=== PATIENT | male | born 1995 | race Caucasian/White ===

== ENCOUNTER 2022-05-17 09:54 | Observation (INO) ==
[2022-05-17] MEDS ORDERED: SODIUM CHLORIDE 0.9% 250 ML IV PRN (10:15)
[2022-05-17 10:18] LABS: Basophils # (auto) 0.07 K/uL (0-0.2); Basophils % (auto) 0.4 %; Eosinophils # (auto) 0.33 K/uL (0-0.50); Eosinophils % (auto) 1.8 %; Hematocrit (blood only) 46.1 % (40.1-51.0); Hemoglobin 16.3 g/dl (14.0-18.0); Immature Granulocytes # (auto) 0.08 K/uL (0.00-0.02); Immature Granulocytes % (auto) 0.4 %; Lymphocytes # (auto) 2.88 K/uL (1.2-3.4); Lymphocytes % (auto) 15.9 %; Mean Corpuscular Hemoglobin 32.8 pg (25.0-34.0); Mean Corpuscular Hgb Conc 35.4 g/dL (32.0-36.0); Mean Corpuscular Volume 92.8 fL (80.0-100.0); Neutrophils # (auto) 13.81 K/uL (1.4-6.5); Neutrophils % (auto) 76.5 %; Platelet Count 312 K/uL (130-400); RDW Coefficient of Variation 13.3 % (11.5-14.5); RDW Standard Deviation 45.4 fL (36.4-46.3); Red Blood Count 4.97 M/uL (4.63-6.08); White Blood Count 18.07 K/ul (4.8-10.8)
[2022-05-17 10:29] LABS: Partial Thromboplastin Ratio 0.8; Partial Thromboplastin Time 23.3 Seconds (21.0-31.0); Prothrombin Time 10.9 Seconds (9.0-12.0)
--- NOTE | 2022-05-17 10:32 | Emergency Department Note ---
Impression & Plan Epistaxis, Hematemesis, Atrial tachycardia ED Provider Note NAME: LEWIS SOTO AGE: 26 SEX: M : 1995 ARRIVES VIA: Walk-In INFORMANT: Patient ED PROVIDER(S): Sen Rivera DO CHIEF COMPLAINT: Epistaxis and vomiting blood HPI: Patient had nasal surgery over a month ago by Dr. May and had the scab removed from his left nare this past week. He has been having intermittent bleeding since then. He was cauterized yesterday by Dr. May in the office and was packed. Bleeding started today and was significantly worse and is scheduled for the OR. ROS: See above HPI for pertinent positives & negatives. A total of 10 systems reviewed and were otherwise negative. PAST MEDICAL HISTORY:See Below PAST SURGICAL HISTORY:See Below FAMILY HISTORY:See Below SOCIAL HISTORY:See Below HOME MEDICATIONS:See Below ALLERGIES:See Below VITALS:See Below PHYSICAL EXAMINATION: GENERAL: Sitting up in bed, blood coming out of the left nare and right nare and vomiting up blood EYE EXAM: normal conjunctiva. PERRL and EOM's grossly intact. OROPHARYNX: Large amount of blood in the oropharynx NOSE: Right nare was initially packed with a 7.5 Rhino. Packing was then removed from the left nare as he continued to have bleeding and attempted a 7 and half Rhino but was unsuccessful and downsized eventually to 4.5 Rhino which was inflated. Bleeding stopped following this. LUNGS: Clear to auscultation. Normal chest wall mechanics HEART: no murmurs, S1 normal and S2 normal ABDOMEN: abdomen soft, non-tender, normo-active bowel sounds, no masses, no rebound or guarding. UPPER EXTREMITIES: upper extremities are grossly normal. LOWER EXTREMITIES: No pitting edema. NEURO EXAM: Normal sensorium, cranial nerves II-XII [grossly] intact, normal speech, no [gross] weakness of arms, no [gross] weakness of legs. [No drift. Finger to nose intact. Gross sensation intact.] MEDICAL DECISION MAKING: Patient is a 26-year-old male who was sent in for the OR Dr. Carter was aware of. I was called to bedside as patient was having excessive epistaxis which was coming out of the right nare, he was vomiting blood, blood was coming out of the left nare packing. Right nare was packed with a 7.5 Rhino emergently and was inflated to 8 cc. Bleeding continued. Packing of the left nare was removed and attempted to insert a 7.5 Rhino but had resistance. Downsized to 5.5 and again this would not go completely and consequently placed a 4.5 Rhino. This was inflated with 5 cc. Following this bleeding did stop. He did have at least 300 to 500 cc of blood in the basin as well as the toilet, the floor and over himself. Once the bleeding had stopped to contact Dr. QURESHI and he was made aware. He is currently scheduled for the OR at 12:00. Labs showed no significant anemia. Mild leukocytosis 18,000 which I favor secondary to the vomiting. INR was unremarkable. BMP was unremarkable. Patient was typed and crossed for 2 units due to the excess amount of bleeding that he had in the ER. He had no other complaints at this time. Dad was updated bedside. He was given IV fluids as well as Zofran and morphine while in the ER. Hematemesis was likely secondary to the posterior epistaxis draining down the back of his throat. Triage Nursing notes reviewed. Limited review of prior medical records performed Vital Signs: reviewed and remarkable for tachy and HTN Differential diagnosis: Anterior epistaxis, coagulopathy, traumatic injury, fracture, septal hematoma, posterior epistaxis, infections, as well as other pathologies. ER treatment provided: See below Diagnostics interpreted by me: ECG: none Laboratory studies: As stated above and show below. Imaging studies: none Consultation(s): Discussed with Dr. May and Pt is going to the OR Procedures: Procedure: #1 Anterior Nasal Packing Indication: Epistaxis Verbal consent obtained. Risks and benefits were explained with the usual customary discussion. A time out was taken. The right naris was prepped. A 7.5-cm nasal balloon was placed in a standard fashion. The patient tolerated this well. Hemostasis was not achieved. The balloon was inflated to 8 cc. no complications. Procedure: #2 Anterior Nasal Packing Indication: Epistaxis Verbal consent obtained. Risks and benefits were explained with the usual customary discussion. A time out was taken. The left naris was prepped with Afrin and lidocaine. A 4.5-cm nasal balloon was placed in a standard fashion as the 7.5 and 5.5 would not pass. The patient tolerated this well. Hemostasis was achieved. No complications. 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 MAY History of tooth extraction wisdom teeth Family History Grandfather (Maternal) Heart disease Grandfather (Paternal) Cancer Testicle cancer Mother Asthma Other Seasonal allergies Denies family history of Hypertension Stroke Social History Smoking Status: Never smoker Second Hand Exposure: No; Hx Alcohol Use: Yes Alcohol type: beer Alcohol Intake Frequency Comment: 1-2 beers per week Hx Substance Use: No Preferred Language: Senegalese Communication Ability: Effective Engineering Technologist Required: No Beliefs That Will Affect Care: None marital status: Single Current Living Situation: Parent current occupational status: student current occupation: [employer] STUDENT/WORKS [employer] Feels Safe at Home: Yes Assistive Devices: Glasses Allergies Allergies Allergy/AdvReac Type Severity Reaction Status Date / Time amoxicillin Allergy Severe Anaphylaxis Verified 05/17/22 10:34 Penicillins Allergy Unknown Anaphylaxis Verified 05/17/22 10:34 PEANUTS Allergy Unknown Anaphylaxis Uncoded 05/17/22 10:34 Home Meds Home Medications Medication Instructions Recorded Confirmed cetirizine 10 mg tablet (Zyrtec) 10 mg PO HS PRN Allergy Symptoms 06/16/21 05/17/22 lithium carbonate 450 mg 450 mg PO HS 06/16/21 05/17/22 tablet,extended release acetaminophen 650 mg 1,300 mg PO Q8H PRN Pain 04/06/22 05/17/22 tablet,extended release (Tylenol Arthritis Pain) doxycycline hyclate 100 mg tablet 100 mg PO DAILY 05/17/22 05/17/22 epinephrine 0.3 mg/0.3 mL 0.3 mg IM DIRECTED PRN 05/17/22 05/17/22 injection, auto-injector (EpiPen bronchodilation 2-Forrest) Results & Data (ED) Vital Signs Vital Signs - 24 hr 05/17/22 09:59 05/17/22 11:12 05/17/22 11:22 Temperature 36.7 C Temperature Source Oral Pulse Rate 132 H 108 H Pulse Rate [Left Finger] 115 H Pulse Rhythm [Left Finger] Regular Pulse Strength [Left Finger] Normal Respiratory Rate 20 18 18 Respiratory Effort / Characteristics Non-Labored Non-Labored Spontaneous Respiratory Depth Normal Normal Respiratory Pattern Regular Blood Pressure 152/94 H 134/72 Blood Pressure [Right Arm] 171/109 H Blood Pressure Mean 113 Blood Pressure Mean [Right Arm] 129 Blood Pressure Position [Right Arm] Semi-fowlers Pulse Oximetry 100 99 97 Oxygen Delivery Method Room Air Room Air Room Air Oxygen Flow Rate Sepsis Recent Fever Within 48 Hours No Sepsis New/Unexplained Change in Mental Status N/A Sepsis Action Taken by Nursing No Action Required 05/17/22 13:18 05/17/22 13:25 Temperature 36.5 C Temperature Source Temporal Artery Scan Pulse Rate Pulse Rate [Left Finger] 130 H 109 H Pulse Rhythm [Left Finger] Regular Regular Pulse Strength [Left Finger] Normal Normal Respiratory Rate 18 18 Respiratory Effort / Characteristics Non-Labored Spontaneous Non-Labored Spontaneous Respiratory Depth Normal Normal Respiratory Pattern Regular Regular Blood Pressure Blood Pressure [Right Arm] 130/71 130/82 Blood Pressure Mean Blood Pressure Mean [Right Arm] 90 98 Blood Pressure Position [Right Arm] Semi-fowlers Semi-fowlers Pulse Oximetry 99 100 Oxygen Delivery Method Oxymask Oxymask Oxygen Flow Rate 5 5 Sepsis Recent Fever Within 48 Hours Sepsis New/Unexplained Change in Mental Status Sepsis Action Taken by Nursing Laboratory Data Result diagrams: 05/17/22 10:04 05/17/22 10:04 Lab Results 05/17/22 05/17/22 05/17/22 Range/Units 10:04 10:04 10:04 WBC 18.07 H (4.8-10.8) K/ul RBC 4.97 (4.63-6.08) M/uL Hgb 16.3 (14.0-18.0) g/dl Hct 46.1 (40.1-51.0) % MCV 92.8 (80.0-100.0) fL MCH 32.8 (25.0-34.0) pg MCHC 35.4 (32.0-36.0) g/dL RDW Std Deviation 45.4 (36.4-46.3) fL RDW Coeff of Eric 13.3 (11.5-14.5) % Plt Count 312 (130-400) K/uL MPV 12.0 (9.4-12.4) fL Immature Gran % (Auto) 0.4 % Neut % (Auto) 76.5 % Lymph % (Auto) 15.9 % [place]oula % (Auto) 5.0 % Eos % (Auto) 1.8 % Baso % (Auto) 0.4 % Neut # (Auto) 13.81 H (1.4-6.5) K/uL Lymph # (Auto) 2.88 (1.2-3.4) K/uL [place] # (Auto) 0.90 H (0.24-0.82) K/uL Eos # (Auto) 0.33 (0-0.50) K/uL Baso # (Auto) 0.07 (0-0.2) K/uL Immature Gran # (Auto) 0.08 H (0.00-0.02) K/uL PT 10.9 (9.0-12.0) Seconds INR 1.0 (0.9-1.1) APTT 23.3 (21.0-31.0) Seconds PTT Ratio 0.8 Sodium (136-145) mmol/L Potassium (3.5-5.1) mmol/L Chloride (98-107) mmol/L Carbon Dioxide (21-32) mmol/L Anion Gap (3-11) BUN (6-23) mg/dl Creatinine (0.6-1.4) mg/dl Est Cr Clr Drug Dosing ml/min Est GFR ( Amer) ml/min Est GFR (Non-Af Amer) ml/min BUN/Creatinine Ratio (10-20) Glucose (70-99(Fasting)) mg/dl Calcium (8.5-10.1) mg/dl Total Bilirubin (0.2-1.0) mg/dl AST (13-39) U/L ALT (7-52) U/L Alkaline Phosphatase (34-104) U/L Total Protein (6.0-8.3) gm/dl Albumin (3.4-5.0) gm/dl Globulin (2.5-4.0) gm/dl Albumin/Globulin Ratio (0.9-2) Blood Type O Positive Antibody Screen NEGATIVE Crossmatch See Detail 05/17/22 Range/Units 10:04 WBC (4.8-10.8) K/ul RBC (4.63-6.08) M/uL Hgb (14.0-18.0) g/dl Hct (40.1-51.0) % MCV (80.0-100.0) fL MCH (25.0-34.0) pg MCHC (32.0-36.0) g/dL RDW Std Deviation (36.4-46.3) fL RDW Coeff of Eric (11.5-14.5) % Plt Count (130-400) K/uL MPV (9.4-12.4) fL Immature Gran % (Auto) % Neut % (Auto) % Lymph % (Auto) % [place]oula % (Auto) % Eos % (Auto) % Baso % (Auto) % Neut # (Auto) (1.4-6.5) K/uL Lymph # (Auto) (1.2-3.4) K/uL [place] # (Auto) (0.24-0.82) K/uL Eos # (Auto) (0-0.50) K/uL Baso # (Auto) (0-0.2) K/uL Immature Gran # (Auto) (0.00-0.02) K/uL PT (9.0-12.0) Seconds INR (0.9-1.1) APTT (21.0-31.0) Seconds PTT Ratio Sodium 138 (136-145) mmol/L Potassium 4.4 (3.5-5.1) mmol/L Chloride 105 (98-107) mmol/L Carbon Dioxide 24 (21-32) mmol/L Anion Gap 9 (3-11) BUN 17 (6-23) mg/dl Creatinine 1.06 (0.6-1.4) mg/dl Est Cr Clr Drug Dosing 86.5 ml/min Est GFR ( Amer) 113.3 ml/min Est GFR (Non-Af Amer) 97.8 ml/min BUN/Creatinine Ratio 16.0 (10-20) Glucose 121 H (70-99(Fasting)) mg/dl Calcium 10.0 (8.5-10.1) mg/dl Total Bilirubin 0.5 (0.2-1.0) mg/dl AST 14 (13-39) U/L ALT 10 (7-52) U/L Alkaline Phosphatase 62 (34-104) U/L Total Protein 7.6 (6.0-8.3) gm/dl Albumin 4.9 (3.4-5.0) gm/dl Globulin 2.7 (2.5-4.0) gm/dl Albumin/Globulin Ratio 1.8 (0.9-2) Blood Type Antibody Screen Crossmatch Administered Medications Discontinued Medications Gelatin (Gelatin Sponge Sz 100) Confirm Administered Dose 1 each .ROUTE .STK-MED ONE Stop: 05/17/22 11:50 Last Admin: 05/17/22 12:48 Dose: 1 each Documented By: CRISTINA Tranexamic Acid 640 mg/ Sodium (Chloride) 56.4 mls @ 225.6 mls/hr IV PREOP ONE Stop: 05/17/22 10:39 Last Admin: 05/17/22 12:10 Dose: 225.6 mls/hr Documented By: PAMELA Lidocaine/Epinephrine (Lidocaine 2%/Epinephrine 1:100,000 20ml) Confirm Administered Dose 20 ml INFIL .STK-MED ONE Stop: 05/17/22 11:50 Last Admin: 05/17/22 12:51 Dose: 20 ml Documented By: CRISTINA Miscellaneous ( Floseal Hemostatic Matrix 10ml) 10 ml TOP ONCE ONE Stop: 05/17/22 12:11 Last Admin: 05/17/22 12:52 Dose: 7 ml Documented By: CRISTINA Morphine Sulfate (Morphine Sulfate 4 Mg/Ml 1 Ml Carp\Vial) 4 mg IV NOW STA Stop: 05/17/22 10:39 Last Admin: 05/17/22 10:54 Dose: 4 mg Documented By: SHUN Ondansetron HCl (Ondansetron Inj 2 Mg/Ml 2 Ml Vial) 4 mg IV NOW STA Stop: 05/17/22 10:39 Last Admin: 05/17/22 10:54 Dose: 4 mg Documented By: SHUN Discharge Plan Visit Data Chief Complaint: Nose Bleed (Minor) Stated Complaint: NOSE BLEED,S/P SURG,TO SEE DR MAY ED Provider: Sen Rivera Discharge Problem: Epistaxis, Hematemesis, Atrial tachycardia Discharge Instructions Interventions: ED Discharge Assessment Last Done: 05/17/22 11:12 Forms Stand Alone Forms: My [facility] Prescriptions Prescriptions: No Action cetirizine [Zyrtec] 10 mg tablet 10 mg PO HS PRN (Reason: Allergy Symptoms) lithium carbonate 450 mg tablet extended release 450 mg PO HS acetaminophen [Tylenol Arthritis Pain] 650 mg Tablet Extended Release 1,300 mg PO Q8H PRN (Reason: Pain) doxycycline hyclate 100 mg tablet 100 mg PO DAILY epinephrine [EpiPen 2-Forrest] 0.3 mg/0.3 mL auto-injector 0.3 mg IM DIRECTED PRN (Reason: bronchodilation) Rx Instructions: 0.3 mg IM as needed for anaphylaxis, may repeat after 10 minutes if needed. Referrals Referrals: Onelia Boudreaux MD [Primary Care Provider] -
[2022-05-17] MEDS ORDERED: MoRPHine SULFATE 4 MG/ML 1 ML CARP\\VIAL IV STA (10:38)
[2022-05-17] MEDS ORDERED: SODIUM CHLORIDE 0.9% IV ONE (10:38)
[2022-05-17] MEDS ORDERED: ONDANSETRON INJ 2 MG/ML 2 ML VIAL IV STA (10:38)
[2022-05-17] MEDS ORDERED: TRANEXAMIC ACID IV ONE (10:38)
[2022-05-17 10:40] LABS: Albumin Globulin Ratio 1.8 (0.9-2); Albumin Level 4.9 gm/dl (3.4-5.0); Bilirubin,Total 0.5 mg/dl (0.2-1.0); Creatinine Clr Calc Pharmacy 86.5 ml/min; Est GFR (African American) 113.3 ml/min; Est GFR (Non-African American) 97.8 ml/min; Globulin 2.7 gm/dl (2.5-4.0); Potassium 4.4 mmol/L (3.5-5.1); Total Protein 7.6 gm/dl (6.0-8.3)
[2022-05-17] MEDS ORDERED: GELATIN SPONGE SZ 100 ONE (11:49)
[2022-05-17] MEDS ORDERED: LIDOCAINE 2%/EPINEPHRINE 1:100,000 20ML INFIL ONE (11:49)
--- NOTE | 2022-05-17 11:52 | Anesthesiology Consultation ---
Date of Service May 17, 2022 Assessment & Plan (1) Encounter for pre-operative examination: Chart Review Chart Review: Acceptable Risk for Surgery and Patient NOT seen in Pre Admission Testing Consults Requested none History Surgery Operation Date: 05/17/22 13:30 Proposed Procedures p Endoscopic Cauterization - Kadi Marley MD Height/Weight Height: 5 ft 3 in Weight: 64 kg Allergies Allergy/AdvReac Type Severity Reaction Status Date / Time amoxicillin Allergy Severe Anaphylaxis Verified 05/17/22 10:34 Penicillins Allergy Unknown Anaphylaxis Verified 05/17/22 10:34 PEANUTS Allergy Unknown Anaphylaxis Uncoded 05/17/22 10:34 Medications Home Medications Medication Instructions Recorded Confirmed Last Taken cetirizine 10 mg tablet (Zyrtec) 10 mg PO HS PRN Allergy Symptoms 06/16/21 05/17/22 05/16/22 lithium carbonate 450 mg 450 mg PO HS 06/16/21 05/17/22 05/16/22 tablet,extended release acetaminophen 650 mg 1,300 mg PO Q8H PRN Pain 04/06/22 05/17/22 Unknown tablet,extended release (Tylenol Arthritis Pain) doxycycline hyclate 100 mg tablet 100 mg PO DAILY 05/17/22 05/17/22 05/17/22 0800 epinephrine 0.3 mg/0.3 mL 0.3 mg IM DIRECTED PRN 05/17/22 05/17/22 Unknown injection, auto-injector (EpiPen bronchodilation 2-Forrets) NPO Date Last Intake of Fluids: 05/17/22 Time Last Intake of Fluids: 09:00 Date Last Intake of Solids: 05/16/22 Time Last Intake of Solids: 15:00 Past Medical History Medical History Allergy to nuts ANAPHYLAXIS TO ALL NUTS Anxiety GERD (gastroesophageal reflux disease) Past Family History Family History Grandfather (Maternal) Heart disease Grandfather (Paternal) Cancer Testicle cancer Mother Asthma Other Seasonal allergies Denies family history of Hypertension Stroke Past Surgical History Surgical History History of nasal surgery ELECTRIC CAUTERY FOR EPISTAXIS-05/01/22-DR. MARLEY History of tooth extraction wisdom teeth Social History Smoking Status: Never smoker Hx Alcohol Use: Yes Alcohol type: beer alcohol intake frequency: other Hx Substance Use: No Physical Exam Vital Signs Last Vital Signs Temp 36.7 C 05/17/22 11: Pulse 115 H 05/17/22 11:22 Resp 18 05/17/22 11:22 BP 171/109 H 05/17/22 11:22 Pulse Ox 97 05/17/22 11: O2 Del Method 05/17/22 11:22 Testing Laboratory Results 05/17/22 10:04 05/17/22 10:04 PT 10.9 Seconds (9.0-12.0) 05/17/22 10:04 INR 1.0 (0.9-1.1) 05/17/22 10:04 APTT 23.3 Seconds (21.0-31.0) 05/17/22 10:04 Blood Type O Positive 05/17/22 10:04 Antibody Screen NEGATIVE 05/17/22 10:04
[2022-05-17] MEDS ORDERED: ATROPINE SULFATE 0.1 MG/ML 10ML SYR IV PRN (11:53)
[2022-05-17] MEDS ORDERED: HYDROmorphone INJ 1 MG/ML SYRINGE IV PRN (11:53)
[2022-05-17] MEDS ORDERED: ONDANSETRON INJ 2 MG/ML 2 ML VIAL IV PRN ×2 (11:53→13:34)
[2022-05-17] MEDS ORDERED: ePHEDrine sulfate 50 MG/ML AMP IV PRN (11:53)
[2022-05-17] MEDS ORDERED: fentaNYL citrate 100 MCG/2 ML VIAL IV PRN (11:53)
--- NOTE | 2022-05-17 11:55 | History & Physical Report ---
Date of Service May 17, 2022 Assessment & Plan (1) Acquired deviated nasal septum: Plan: s/p septoplasty, RFVR turbinates, now bleeding, for endoscopic cautery Plan for endoscopic cautery History of Present Illness Chief Complaint: Acute epistaxis Primary Care Provider: Onelia Boudreaux MD This 26-year-old gentleman underwent septoplasty and radiofrequency volume reduction the turbinates by me. He had episode of bleeding last week from the right nares, found to be from the right inferior turbinate. This resolved. He has some bleeding from the left nares yesterday, cauterized and packed in office by me yesterday. Again had bleeding this morning. Large amount of clots. Left nares. Allergies Allergy/AdvReac Type Severity Reaction Status Date / Time amoxicillin Allergy Severe Anaphylaxis Verified 05/17/22 10:34 Penicillins Allergy Unknown Anaphylaxis Verified 05/17/22 10:34 PEANUTS Allergy Unknown Anaphylaxis Uncoded 05/17/22 10:34 Home Medications Medication Instructions Recorded Confirmed Type cetirizine 10 mg tablet (Zyrtec) 10 mg PO HS PRN Allergy Symptoms 06/16/21 05/17/22 History lithium carbonate 450 mg 450 mg PO HS 06/16/21 05/17/22 History tablet,extended release acetaminophen 650 mg 1,300 mg PO Q8H PRN Pain 04/06/22 05/17/22 History tablet,extended release (Tylenol Arthritis Pain) doxycycline hyclate 100 mg tablet 100 mg PO DAILY 05/17/22 05/17/22 History epinephrine 0.3 mg/0.3 mL 0.3 mg IM DIRECTED PRN 05/17/22 05/17/22 History injection, auto-injector (EpiPen bronchodilation 2-Forrest) Past Med/Surg History Medical History Allergy to nuts 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 MARLYE History of tooth extraction wisdom teeth Family History Grandfather (Maternal) Heart disease Grandfather (Paternal) Cancer Testicle cancer Mother Asthma Other Seasonal allergies Denies family history of Hypertension Stroke Social History Smoking Status: Never smoker Second Hand Exposure: No; Hx Alcohol Use: Yes Alcohol type: beer Alcohol Intake Frequency Comment: 1-2 beers per week Hx Substance Use: No Preferred Language: [place] Communication Ability: Effective Brand Development Manager Required: No Beliefs That Will Affect Care: None marital status: Single Current Living Situation: Parent current occupational status: student current occupation: [employer] STUDENT/WORKS [employer] Feels Safe at Home: Yes Assistive Devices: Glasses Physical Exam Constitutional: WD/WN, vitals as above Eyes: PERRL, conjunctivae normal, anicteric sclerae ENMT: Nose: + epistaxis (Acute bleed left inferior turbinate. Required epistaxis in ER) Neck: trachea midline, no thyromegaly Respiratory: normal respiratory effort, lungs clear to auscultation Results & Data Results & Data ([facility]) Vital Signs (Past 12 Hours) Vital Signs Temp Pulse Pulse Resp BP BP Pulse Ox 05/17/22 11:22 36.7 C 115 H 18 171/109 H 97 05/17/22 11:12 108 H 18 134/72 99 05/17/22 09:59 132 H 20 152/94 H 100 O2 Del Method 05/17/22 11:22 Room Air 05/17/22 11:12 Room Air 05/17/22 09:59 Room Air PG Care Time/CCT Total # of Minutes Spent Total Time Spent with Patient: Total time spent is greater than 50% in coordination of care (as documented) at patient's floor/unit and/or counseling patient: Coding Level of Care Code None Diagnoses Acquired deviated nasal septum J34.2
[2022-05-17] MEDS ORDERED: ONDANSETRON INJ 2 MG/ML 2 ML VIAL ONE (12:07)
[2022-05-17] MEDS ORDERED: MIDAZOLAM HCL 1 MG/ML 2ML VIAL ONE ×2 (12:07→12:17)
[2022-05-17] MEDS ORDERED: LIDOCAINE 2% MPF LOCAL 5 ML VIAL INFIL ONE (12:07)
[2022-05-17] MEDS ORDERED: fentaNYL citrate 100 MCG/2 ML VIAL ONE (12:07)
[2022-05-17] MEDS ORDERED: PROPOFOL IV EMULSION 10 MG/ML 20 ML VIAL IV ONE (12:07)
[2022-05-17] MEDS ORDERED: ROCURONIUM BROMIDE 10 MG/ML 5 ML VIAL IV ONE (12:09)
[2022-05-17] MEDS ORDERED: FLOSEAL HEMOSTATIC MATRIX 10ML TOP ONE (12:10)
[2022-05-17] MEDS ORDERED: FAMOTIDINE/PF 20 MG/2 ML VIAL IV ONE (12:12)
[2022-05-17] MEDS ORDERED: KETAMINE 50 MG/5 ML SYRINGE ONE (12:17)
[2022-05-17] MEDS ORDERED: LABETALOL HCL IV 5 MG/ML 20ML IV ONE (13:19)
[2022-05-17] MEDS ORDERED: HYDROCODONE/ACETAMOPHEN 5/325MG TAB PO PRN (13:34)
[2022-05-17] MEDS ORDERED: ACETAMINOPHEN 325 MG TAB PO PRN (13:34)
--- NOTE | 2022-05-17 13:53 | Operative Report ---
PG Post Operative Report Pre & Post Diagnosis Operation Date: 05/17/22 13:30 Pre-Op Diagnosis: Acquired deviated nasal septum, status post septoplasty, epistaxis Post-Op Diagnosis: Acquired deviated nasal septum, status post septoplasty, epistaxis I identified the patient and participated in the time-out.: Yes Procedure Operation Date: 05/17/22 13:30 Actual Procedures p Endoscopic Cauterization - Kadi May MD Surgeon Kadi May MD Strainer Cleaner None Estimated Blood Loss 75 Findings Consistent with Post-Op Diagnosis Exposed bone left inferior turbinate Specimens None Anesthesia Type General Complications None Description of Procedure He was brought to the operating room, properly identified, prepped and draped in the usual sterile manner after general endotracheal anesthesia due to blood in the stomach. The stomach was later evacuated using a orogastric tube. The nose was decongested using cottonoids with topical 2% Xylocaine with 1- 100,000 strength epinephrine. The right nares was visualized. There was no bleeding site identified. Left nasal cavity was visualized with the endoscope. Bleeding site identified anterior and of the left inferior turbinate. There was some exposed bone which was removed to allow identification of the bleeding site at the anterior end of the left inferior turbinate which was cauterized using the suction cautery with good control. The nose was packed with larger piece of Gelfoam posteriorly and then 7 cc of Floseal especially over the bleeding site followed by a smaller piece of Gelfoam anteriorly to hold the Floseal in place. He tolerated procedure well was taken recovery area in satisfactory condition. I attest to the content of the Intraoperative Record and any orders documented therein. Any exceptions are noted below.
--- NOTE | 2022-05-17 14:53 | Anesthesiology Progress Note ---
Date of Service May 17, 2022 Anesthesia Post Procedure Vital Signs Vital Signs: Temp Pulse Pulse Resp BP BP Pulse Ox 05/17/22 14:20 102 H 16 119/89 95 05/17/22 14:05 100 H 17 112/91 95 05/17/22 13:55 36.6 C 102 H 17 133/86 95 05/17/22 13:45 102 H 18 125/85 95 05/17/22 13:35 102 H 18 127/93 95 05/17/22 13:25 109 H 18 130/82 100 05/17/22 13:18 36.5 C 130 H 18 130/71 99 05/17/22 11:22 36.7 C 115 H 18 171/109 H 97 05/17/22 11:12 108 H 18 134/72 99 05/17/22 09:59 132 H 20 152/94 H 100 O2 Del Method O2 Flow Rate 05/17/22 14:20 Room Air 05/17/22 14:05 Room Air 05/17/22 13:55 Room Air 05/17/22 13:45 Room Air 05/17/22 13:35 Room Air 05/17/22 13:25 Oxymask 5 05/17/22 13:18 Oxymask 5 05/17/22 11:22 Room Air 05/17/22 11:12 Room Air 05/17/22 09:59 Room Air Pain Intensity Nose: Pain Intensity: 4 Transfer of Care Handoff Completed per policy Notes Mental Status: alert / awake / arousable and participated in evaluation Patient Amnestic to Procedure: Yes Nausea / Vomiting: adequately controlled Pain: adequately controlled Airway Patency, RR, SpO2: stable & adequate BP & HR: stable & adequate Hydration State: stable & adequate Anesthetic Complications: no major complications apparent and Pt Satisfied with anesthetic care
[2022-05-17] MEDS: ACETAMINOPHEN 500 MG TAB PO PRN (18:13)
[2022-05-17] MEDS ORDERED: LITHIUM CARBONATE 450 MG TABCR PO SCH (21:00)
[2022-05-17] MEDS ORDERED: PROMETHAZINE HCL 25 MG in SODIUM CHLORIDE 0.9% 50 ML IV PRN (21:28)
[2022-05-17] MEDS ORDERED: traMADol HCL 50 MG TABLET PO PRN (21:56)
[2022-05-17] MEDS ORDERED: CALCIUM CARBONATE 500 MG CHEWABLE TAB PO PRN ×2 (21:57→22:33)
[2022-05-17] MEDS: ONDANSETRON INJ 2 MG/ML 2 ML VIAL IV PRN (22:01)
[2022-05-18] MEDS ORDERED: MELATONIN 3 MG TAB PO PRN (02:14)
[2022-05-18] MEDS: ONDANSETRON INJ 2 MG/ML 2 ML VIAL IV PRN (05:29)
[2022-05-18] MEDS: ACETAMINOPHEN 500 MG TAB PO PRN (05:31)
[2022-05-18] MEDS ORDERED: PROMETHAZINE HCL 25 MG TAB PO ONE (08:02)
--- NOTE | 2022-05-18 08:15 | Discharge Summary ---
Date of Service May 18, 2022 Admission HPI Per Admitting Provider This 26-year-old gentleman underwent septoplasty and radiofrequency volume reduction the turbinates by me. He had episode of bleeding last week from the right nares, found to be from the right inferior turbinate. This resolved. He has some bleeding from the left nares yesterday, cauterized and packed in office by me yesterday. Again had bleeding this morning. Large amount of clots. Left nares. Admission Exam (Per Admitting) Constitutional WD/WN, vitals as above Eyes PERRL, conjunctivae normal, anicteric sclerae ENMT Nose: + epistaxis (Acute bleed left inferior turbinate. Required epistaxis in ER) Neck trachea midline, no thyromegaly Respiratory normal respiratory effort, lungs clear to auscultation Discharge Data Procedures Performed Operation Date: 05/17/22 13:30 Actual Procedures p Endoscopic Cauterization - Kadi May MD Hospital Course (1) Epistaxis: He underwent endoscopic cauterization in the OR. Was found to have area of necrosis with exposed bone anterior end of the left inferior turbinate. The piece of bone was removed and the bleeding site cauterized with good control. Packed with Gelfoam and Floseal. He did well postop with no further bleeding. Some nausea treated with Zofran and Phenergan with good control. Will discharge to home. Recheck in office in 2 weeks. He had upset stomach with doxycycline. I will try clarithromycin. (2) Hematemesis: Stomach was evacuated with OG tube in the operating room. No further hematemesis. (3) Atrial tachycardia: Brief episode of tachycardia in the ER. Most likely in reaction to the stressful situation and the bleeding. However his hemoglobin was 16.2 in the ER. May be slightly lower but not in need of any intervention. No further bleeding.
[2022-05-18] MEDS ORDERED: DOXYCYCLINE HYCLATE 100 MG CAP PO SCH (09:00)
== END 2022-05-18 11:08 | disposition home or self-care (01) ==
LOC: 3N 09:54 → ED 09:54 → 3N 11:12